=== PATIENT | male | born 1965 | race Two or more races ===

== ENCOUNTER 2017-02-26 00:09 | Emergency (ER) | payer MEDICAID, OTHER ==
[~2017-02-26] VITALS: Ht 177.8 cm; Wt 63.5 kg
[~2017-02-26 00:09] MED LIST: ASPI81TA2 PO; ATOR40TA PO; SULF1TAB48 PO
--- NOTE | 2017-02-26 01:05 | NUR ---
TO BED 1 A 51 YO MALE BIBSELF W C/O LEFT INNER THIGH ABSCESS X5 DAYS. VSS. AFEBRILE. NAD NOTED. AWAITING FOR ER MD DENT.
--- NOTE | 2017-02-26 01:10 | NUR ---
DR DURAN AT BEDSIDE TO EVAL.
--- NOTE | 2017-02-26 01:30 | NUR ---
LISW AT BEDSIDE TO DRAW BLOOD.
[2017-02-26 01:55] LABS: CALCIUM, SERUM 8.6 mg/dL (8.5-10.1)
[2017-02-26 02:01] LABS: POTASSIUM 3.8 mmol/L (3.5-5.1)
[2017-02-26] MEDS ORDERED: CLINDAMYCIN HCL 150 MG CAPSULE PO ONE ×2 (03:15→03:30)
--- NOTE | 2017-02-26 03:19 | NUR ---
Patient discharged in stable condition. Written and verbal after care instructions given. Patient verbalizes understanding of instruction. Patient is ambulatory, no further complaints.
[2017-02-26 03:38] VITALS: BP 120/74
== END 2017-02-26 03:39 | disposition home or self-care (01) ==
LOC: ER 00:14
DX: L03.116 Cellulitis of left lower limb (principal); I38 Endocarditis, valve unspecified; F17.200 Nicotine dependence, unspecified, uncomplicated; Z88.8 Allergy status to other drugs, medicaments and biological substances; Z85.118 Personal history of other malignant neoplasm of bronchus and lung; Z79.82 Long term (current) use of aspirin
CPT/HCPCS: 36415; 80048; 99283; A4606; Z7610

== ENCOUNTER 2020-10-29 23:28 | Emergency (ER) | payer MEDICAID ==
[~2020-10-29] VITALS: Ht 177.8 cm; Wt 90.7 kg
[~2020-10-29 23:28] MED LIST changes: +ASPI-1169 PO; -ASPI81TA2 PO
--- NOTE | 2020-10-29 23:46 | NUR ---
pt bibra c/o left leg swelling and redness x4 days. Pt aaox4 breathing evenly and unlabored. Upon assessment pt does have some wounds in various stages of healing on the left extremity. SKin is warm and dry. Pt connected to monitor and pox. Pt given blanket and call light within reach
[2020-10-30] MEDS ORDERED: SULF1TAB48 PO (01:21)
[2020-10-30] MEDS ORDERED: CLIN300C12 PO (01:21)
--- NOTE | 2020-10-30 01:42 | NUR ---
Patient discharged to home in stable condition. Written and verbal after care instructions given. Patient verbalizes understanding of instruction. Pt ambulatory with a steady gait
[2020-10-30 01:47] VITALS: BP 140/84
== END 2020-10-30 01:42 | disposition home or self-care (01) ==
LOC: ER 23:28
DX: L03.116 Cellulitis of left lower limb (principal); L02.416 Cutaneous abscess of left lower limb; F17.200 Nicotine dependence, unspecified, uncomplicated; Z88.1 Allergy status to other antibiotic agents; Z79.899 Other long term (current) drug therapy; Z79.82 Long term (current) use of aspirin

== ENCOUNTER 2023-10-10 04:19 | Emergency (ER) | payer MEDICAID ==
[~2023-10-10] VITALS: Ht 177.8 cm; Wt 83.9 kg
[~2023-10-10 04:19] MED LIST changes: +CLIN300C12 PO
[2023-10-10 04:42] VITALS: TEMP 98.7
[2023-10-10] MEDS ORDERED: FLUORESCEIN SODIUM OPHTH 1 EA STRIP ONE (04:45)
[2023-10-10] MEDS ORDERED: TETRAcaine 5 ML BOTTLE ONE (04:45)
[2023-10-10] MEDS: TETRAcaine 5 ML BOTTLE EACHEYE ONE (05:05)
[2023-10-10] MEDS: FLUORESCEIN SODIUM OPHTH 1 EA STRIP OP ONE (05:05)
[2023-10-10] MEDS ORDERED: CIPR2.5D14 LEFTEYE (05:26)
[2023-10-10 05:34] VITALS: BP 138/98; O2SAT 100
== END 2023-10-10 06:00 | disposition home or self-care (01) ==
LOC: ER 04:26
DX: S05.02XA Injury of conjunctiva and corneal abrasion without foreign body, left eye, initial encounter (principal); Z90.49 Acquired absence of other specified parts of digestive tract; Z85.118 Personal history of other malignant neoplasm of bronchus and lung; F17.210 Nicotine dependence, cigarettes, uncomplicated; Z59.00 Homelessness unspecified; X58.XXXA Exposure to other specified factors, initial encounter; Y93.89 Activity, other specified; Y92.89 Other specified places as the place of occurrence of the external cause; Y99.8 Other external cause status